=== PATIENT | male | born 1975 | race Caucasian/White ===

== ENCOUNTER 2019-02-08 05:26 | Emergency (ER) | payer BC, OTHER ==
[~2019-02-08] VITALS: Ht 177.8 cm; Wt 117.9 kg
[~2019-02-08 05:26] MED LIST: FENO145T PO
--- NOTE | 2019-02-08 05:30 | NUR ---
Patient to ER bed 8 to gown for evaluation. Side rails up.
[2019-02-08 05:33] VITALS: BP_SYST 148
--- NOTE | 2019-02-08 05:40 | NUR ---
Note undone in EDM - 02/08/19 at 0650 by [email or web address] Pt came to the ED after lifting up a heavy box last wednesday at work. PT reports he felt pain 15 minutes after lifting the box and the pain has progressively gotten worse over time. Reports taking advil, tylenol with codeine with no relief. Pt states that pain is 10/10 and he is unable to walk. Denies n/v/d or fever. No other complaints/injuries noted. Will cont. to monitor.
--- NOTE | 2019-02-08 05:40 | NUR ---
Pt came to the ED after lifting up a heavy box last wednesday at work. PT reports he felt pain 15 minutes after lifting a heavy object and the pain has progressively gotten worse over time. Reports taking advil, tylenol with codeine with no relief. Pt states that pain is 10/10 and he is unable to walk. Denies n/v/d or fever. No other complaints/injuries noted. Will cont. to monitor.
--- NOTE | 2019-02-08 05:44 | NUR ---
ER at bedside examining patient.
[2019-02-08] MEDS ORDERED: KETOROLAC TROMETHAMINE 60 MG/2 ML VIAL IM ONE (06:00)
[2019-02-08] MEDS ORDERED: PREDNISONE 20 MG TABLET PO ONE (06:00)
[2019-02-08] MEDS ORDERED: HYDROcodone/ACETAMIN 7.5-325 MG TAB PO ONE (06:00)
[2019-02-08 06:44] VITALS: BP_SYST 148
--- NOTE | 2019-02-08 06:44 | NUR ---
Note undone in EDM - 02/08/19 at 0650 by [email or web address] Patient given written and verbal discharge instructions and verbalizes understanding. ER MD Dr. Sarah discussed with patient the results and treatment provided. Patient in stable condition. ID arm band removed. Rx of ibuprofen, predisone, norco and flexeril given. Patient educated on pain management and to follow up with PMD. Pain Scale 0/10. Opportunity for questions provided and answered. Medication side effect fact sheet provided.
--- NOTE | 2019-02-08 06:44 | NUR ---
Patient given written and verbal discharge instructions and verbalizes understanding. ER MD Dr. Sarah discussed with patient the results and treatment provided. Patient in stable condition. ID arm band removed. Rx of ibuprofen, predisone, norco and flexeril given. Patient educated on pain management and to follow up with PMD. Pain Scale 2/10, pt able to ambulate with steady gait. No signs of acute distress. RX of pain medication given. Opportunity for questions provided and answered. Medication side effect fact sheet provided.
== END 2019-02-08 06:44 | disposition home or self-care (01) ==
LOC: SED 05:26
DX: M54.41 Lumbago with sciatica, right side (principal)
CPT/HCPCS: 96372; 99283; J1885; J7512

== ENCOUNTER 2021-03-17 09:46 | Emergency (ER) | payer OTHER ==
[~2021-03-17] VITALS: Ht 180.3 cm; Wt 117.9 kg
[2021-03-17 10:00] VITALS: BP_SYST 128
[2021-03-17 10:34] LABS: BASOPHILS % (AUTO) 0.4 % (0.0-2.0); EOSINOPHILS # (AUTO) 0.2 K/uL (0.0-0.4); EOSINOPHILS % (AUTO) 2.4 % (0.0-4.0); HEMOGLOBIN 15.4 g/dL (14.0-18.0); LYMPHOCYTES # (AUTO) 1.4 K/uL (1.0-5.5); LYMPHOCYTES % (AUTO) 21.7 % (20.5-51.5); MEAN CORPUSCULAR HEMOGLOBIN 29 pg (27-31); MEAN CORPUSCULAR HGB CONC 33 % (32-36); MEAN CORPUSCULAR VOLUME 88 fL (79.0-98.0); MONOCYTES # (AUTO) 0.4 K/uL (0.0-1.0); MONOCYTES % (AUTO) 6.4 % (1.7-9.3); NEUTROPHILS # (AUTO) 4.4 K/uL (1.8-7.7); NEUTROPHILS % (AUTO) 69.1 % (40.0-70.0); PLATELET COUNT (AUTO) 202 K/uL (130-430); RED BLOOD CELL COUNT(AUTO) 5.25 MIL/uL (4.2-6.2); RED CELL DISTRIBUTION WIDTH 13.4 % (9.0-15.0); WHITE BLOOD COUNT (AUTO) 6.3 K/uL (4.8-10.8)
[2021-03-17 10:52] LABS: CREATININE 1.1 mg/dL (0.55-1.30); POTASSIUM 4.4 mmol/L (3.5-5.1)
[2021-03-17 10:54] LABS: INR 1.1 (0.80-1.20)
[2021-03-17 10:57] LABS: ALBUMIN 3.9 g/dL (3.4-4.8); TOTAL BILIRUBIN 0.6 mg/dL (0.0-1.0)
[2021-03-17 14:16] VITALS: BP_SYST 132
== END 2021-03-17 14:16 | disposition home or self-care (01) ==
LOC: SED 09:46
DX: R07.89 Other chest pain (principal); Z79.899 Other long term (current) drug therapy
CPT/HCPCS: 36415; 71045; 80053; 84484; 85025; 85610-TC; 85730-TC; 93005; 99285

== ENCOUNTER 2024-01-08 15:30 | Emergency (ER) | payer OTHER ==
[~2024-01-08] VITALS: Ht 180.3 cm; Wt 107.0 kg
[2024-01-08 15:55] VITALS: BP_SYST 138; PULSE 62; RESP 18; TEMP 97.8; O2SAT 96
[2024-01-08 18:15] LABS: BASOPHILS % (AUTO) 0.3 % (0.0-2.0); EOSINOPHILS # (AUTO) 0.2 K/uL (0.0-0.4); EOSINOPHILS % (AUTO) 3.4 % (0.0-4.0); HEMATOCRIT 47.1 % (36-54); HEMOGLOBIN 15.9 g/dL (14.0-18.0); LYMPHOCYTES # (AUTO) 1.8 K/uL (1.0-5.5); LYMPHOCYTES % (AUTO) 26.9 % (20.5-51.5); MEAN CORPUSCULAR HEMOGLOBIN 30 pg (27-31); MEAN CORPUSCULAR HGB CONC 34 % (32-36); MEAN CORPUSCULAR VOLUME 88 fL (79.0-98.0); MONOCYTES # (AUTO) 0.5 K/uL (0.0-1.0); NEUTROPHILS # (AUTO) 4.1 K/uL (1.8-7.7); NEUTROPHILS % (AUTO) 62.4 % (40.0-70.0); PLATELET COUNT (AUTO) 187 K/uL (130-430); RED BLOOD CELL COUNT(AUTO) 5.36 MIL/uL (4.2-6.2); RED CELL DISTRIBUTION WIDTH 13.2 % (9.0-15.0); WHITE BLOOD COUNT (AUTO) 6.5 K/uL (4.8-10.8)
[2024-01-08 18:23] LABS: CALCIUM 9.4 mg/dL (8.4-11.0); CREATININE 1.15 mg/dL (0.55-1.30); POTASSIUM 4.1 mmol/L (3.5-5.1)
[2024-01-08 18:27] LABS: ALBUMIN 4.1 g/dL (3.4-4.8); BILIRUBIN,DIRECT 0.1 mg/dL (0.0-0.3); TOTAL BILIRUBIN 0.5 mg/dL (0.0-1.0); TOTAL PROTEIN, SERUM 7.6 g/dL (6.4-8.3)
[2024-01-08] MEDS: KETOROLAC TROMETHAMINE 60 MG/2 ML VIAL IM ONE (18:49)
[2024-01-08 19:30] LABS: BILIRUBIN,URINE NEGATIVE (NEGATIVE); BLOOD, URINE NEGATIVE (NEGATIVE); CLARITY/URINE CLEAR (CLEAR); COLOR,URINE YELLOW (YELLOW); GLUCOSE,URINE NEGATIVE (NEGATIVE); KETONES,URINE TRACE (NEGATIVE); LEUKOCYTE ESTERASE ,URINE NEGATIVE (NEGATIVE); NITRITE, URINE NEGATIVE (NEGATIVE); PH,URINE 6.5 (5.0-8.0); PROTEIN URINE NEGATIVE (NEGATIVE); UROBILINOGEN,URINE 0.2 (0.2-1.0)
[2024-01-08] MEDS ORDERED: MANNITOL 25% 12.5GM/50 ML VIAL IVP ONE (20:00)
[2024-01-08] MEDS: NACL 0.9% 1,000 ML IV ONE (21:03)
[2024-01-08] MEDS ORDERED: METR-154 PO (21:31)
[2024-01-08] MEDS ORDERED: SULF1TAB48 PO (21:31)
[2024-01-08] MEDS ORDERED: IBUP-1969 PO (21:31)
[2024-01-08] MEDS: metroNIDAZOLE 500 MG TABLET PO ONE (21:32)
[2024-01-08] MEDS: SULFAMETHOXAZOLE/TRIMETHOPR DS 1 TABLET PO ONE (21:33)
[2024-01-08 21:58] VITALS: BP_SYST 125; PULSE 53; RESP 18; TEMP 97.8; O2SAT 99
== END 2024-01-08 21:58 | disposition home or self-care (01) ==
LOC: SED 15:30
DX: K52.9 Noninfective gastroenteritis and colitis, unspecified (principal); R10.32 Left lower quadrant pain; Z79.899 Other long term (current) drug therapy
CPT/HCPCS: 99285; 74176; 96360; 80076; 80048; 81001; 83690; 85025; 36415; 81003; 96372; J1885; J7030